=== PATIENT | female | born 1945 | race Caucasian/White ===

== ENCOUNTER → 2020-07-28 | Outpatient (CLI) | payer MEDICARE, OTHER ==
[~2020-07-28] MED LIST: ANORO ELLIPTA1 EACH INH; ATORVASTATIN CA40 MG PO; AUGMENTIN 875-1 EACH PO; BASAGLAR K100 UNIT/1 SQ; BUSPIRONE HCL15 MG PO; CELEXA 20MG TAB20 MG PO; CETIRIZINE HCL10 MG PO; CYANOCOBAL1000 MCG/1 INJ; DEX4 GLUCOSE4 GM PO; DOXYCYCLINE HY100 M2 PO; FERROUS SULFAT325 MG PO; FLAGYL500 MG PO; FLUCONAZOLE50 MG PO; GABAPENTIN800 MG PO; HUMALOG 10100 UNITS/ SC; HUMALOG100 UNIT/3 SQ; IBU800 MG PO; IPRAT-ALBUT 0.5-3 ML NEB; LANTUS SOL100 UNIT/1 SQ; LASIX 40 MG TAB40 MG PO; LEVOFLOXACIN500 MG PO; LISINOPRIL20 MG PO; LISINOPRIL40 MG PO; MEDROL4 MG PO; NIFEDIPINE ER90 M1 PO; PROTONIX 40 MG40 M1 PO; TRAZODONE HCL150 MG PO; VENTOLIN HFA 66.7 GM INH; VENTOLIN/PROVE0.5 ML INH; ZOFRAN ODT 4 MG4 MG PO; ZOFRAN4 MG PO
[2020-07-28 10:39] LABS: HEMOGLOBIN 13.5 gm/dl (12.3-15.3); RED BLOOD COUNT 4.66 M/UL (4.00-5.10); WHITE BLOOD COUNT 12.1 K/UL (4.5-11.0)
[2020-07-28 11:13] LABS: BUN/CREATININE RATIO 28 (0-10)
== END ==
LOC: OPSV2 09:47
PROVIDERS: Surgery
DX: Z01.818 Encounter for other preprocedural examination (principal); R91.8 Other nonspecific abnormal finding of lung field
CPT/HCPCS: 36415; 71046; 80048; 82962; 85025; 85610; 85730; 93005

== ENCOUNTER 2020-08-03 06:24 | Inpatient (IN) | payer MEDICARE, OTHER ==
[~2020-08-03] VITALS: Ht 162.6 cm; Wt 79.4 kg
[~2020-08-03 06:24] MED LIST changes: -DEX4 GLUCOSE4 GM PO; -FLUCONAZOLE50 MG PO; -HUMALOG 10100 UNITS/ SC; -IPRAT-ALBUT 0.5-3 ML NEB; -LEVOFLOXACIN500 MG PO; -MEDROL4 MG PO; -PROTONIX 40 MG40 M1 PO
[2020-08-03 13:25] LABS: RED BLOOD COUNT 4.09 M/UL (4.00-5.10); WHITE BLOOD COUNT 18.6 K/UL (4.5-11.0)
[2020-08-03 13:45] LABS: BUN/CREATININE RATIO 37 (0-10)
--- NOTE | 2020-08-04 01:02 | NUR ---
2100- PT REFUSES TO BE TURNED AT THIS TIME. SHE STATES SHE IS COMFORTABLE. PT IS RESTING IN BED, NO COMPLAINTS AT THIS TIME. 2300- PT IS RESTING IN BED, REFUSES TO BE TURNED AT THIS TIME. EXPLAINED TO PATIENT ABOUT SKIN BREAKDOWN, PRESSURE ULCERS. SHE IS COMFORTABLE WITH NO COMPLAINTS AT THIS TIME.
[2020-08-04 04:59] LABS: HEMOGLOBIN 11.9 gm/dl (12.3-15.3); RED BLOOD COUNT 4.08 M/UL (4.00-5.10); WHITE BLOOD COUNT 16.5 K/UL (4.5-11.0)
[2020-08-04 05:13] LABS: BUN/CREATININE RATIO 35 (0-10)
[2020-08-05 05:29] LABS: HEMOGLOBIN 10.6 gm/dl (12.3-15.3); WHITE BLOOD COUNT 13.6 K/UL (4.5-11.0)
[2020-08-05 05:36] LABS: RED BLOOD COUNT 3.61 M/UL (4.00-5.10)
[2020-08-05 05:53] LABS: BUN/CREATININE RATIO 44 (0-10)
[2020-08-06 05:06] LABS: HEMOGLOBIN 11.4 gm/dl (12.3-15.3); RED BLOOD COUNT 3.94 M/UL (4.00-5.10); WHITE BLOOD COUNT 14.7 K/UL (4.5-11.0)
[2020-08-06 05:44] LABS: BUN/CREATININE RATIO 35 (0-10)
[2020-08-07 05:40] LABS: HEMOGLOBIN 10.7 gm/dl (12.3-15.3); RED BLOOD COUNT 3.64 M/UL (4.00-5.10); WHITE BLOOD COUNT 14.8 K/UL (4.5-11.0)
[2020-08-07 06:15] LABS: BUN/CREATININE RATIO 36 (0-10)
[2020-08-07 11:43] LABS: BUN/CREATININE RATIO 29 (0-10)
[2020-08-08 05:18] LABS: HEMOGLOBIN 10.1 gm/dl (12.3-15.3); RED BLOOD COUNT 3.51 M/UL (4.00-5.10); WHITE BLOOD COUNT 11.2 K/UL (4.5-11.0)
[2020-08-09 05:06] LABS: HEMOGLOBIN 9.8 gm/dl (12.3-15.3); RED BLOOD COUNT 3.4 M/UL (4.00-5.10); WHITE BLOOD COUNT 13.2 K/UL (4.5-11.0)
[2020-08-09 05:22] LABS: BUN/CREATININE RATIO 33 (0-10)
[2020-08-10 04:57] LABS: HEMOGLOBIN 9.6 gm/dl (12.3-15.3); RED BLOOD COUNT 3.31 M/UL (4.00-5.10); WHITE BLOOD COUNT 12.9 K/UL (4.5-11.0)
[2020-08-10 05:20] LABS: BUN/CREATININE RATIO 30 (0-10)
[2020-08-11 04:58] LABS: BUN/CREATININE RATIO 30 (0-10)
[2020-08-11 06:55] LABS: HEMOGLOBIN 9.6 gm/dl (12.3-15.3); RED BLOOD COUNT 3.38 M/UL (4.00-5.10); WHITE BLOOD COUNT 14.2 K/UL (4.5-11.0)
[2020-08-12 07:20] LABS: HEMOGLOBIN 9.4 gm/dl (12.3-15.3); RED BLOOD COUNT 3.26 M/UL (4.00-5.10); WHITE BLOOD COUNT 12.9 K/UL (4.5-11.0)
[2020-08-12 09:11] LABS: BUN/CREATININE RATIO 27 (0-10)
[2020-08-13 05:22] LABS: HEMOGLOBIN 9.6 gm/dl (12.3-15.3); RED BLOOD COUNT 3.46 M/UL (4.00-5.10); WHITE BLOOD COUNT 15.3 K/UL (4.5-11.0)
[2020-08-13 05:36] LABS: BUN/CREATININE RATIO 24 (0-10)
[2020-08-14 05:31] LABS: HEMOGLOBIN 8.4 gm/dl (12.3-15.3); WHITE BLOOD COUNT 12.4 K/UL (4.5-11.0)
[2020-08-14 05:34] LABS: RED BLOOD COUNT 2.91 M/UL (4.00-5.10)
[2020-08-14 05:53] LABS: BUN/CREATININE RATIO 37 (0-10)
[2020-08-14 19:56] LABS: HEMOGLOBIN 8.8 gm/dl (12.3-15.3)
[2020-08-15 05:10] LABS: HEMOGLOBIN 9.1 gm/dl (12.3-15.3); RED BLOOD COUNT 3.15 M/UL (4.00-5.10); WHITE BLOOD COUNT 14.3 K/UL (4.5-11.0)
[2020-08-15 06:10] LABS: BUN/CREATININE RATIO 51 (0-10)
[2020-08-16 04:43] LABS: HEMOGLOBIN 9.5 gm/dl (12.3-15.3); RED BLOOD COUNT 3.34 M/UL (4.00-5.10); WHITE BLOOD COUNT 15.6 K/UL (4.5-11.0)
[2020-08-16 04:54] LABS: BUN/CREATININE RATIO 40 (0-10)
[2020-08-17 03:22] LABS: HEMOGLOBIN 9.3 gm/dl (12.3-15.3); RED BLOOD COUNT 3.22 M/UL (4.00-5.10); WHITE BLOOD COUNT 13.1 K/UL (4.5-11.0)
[2020-08-17 03:37] LABS: BUN/CREATININE RATIO 41 (0-10)
[2020-08-18 03:27] LABS: HEMOGLOBIN 9.2 gm/dl (12.3-15.3); RED BLOOD COUNT 3.26 M/UL (4.00-5.10); WHITE BLOOD COUNT 13.9 K/UL (4.5-11.0)
[2020-08-18 03:46] LABS: BUN/CREATININE RATIO 52 (0-10)
[2020-08-18] MEDS ORDERED: HUMALOG 10100 UNITS/ SC (09:28)
[2020-08-18] MEDS ORDERED: PROTONIX 40 MG40 M1 PO (09:28)
[2020-08-18] MEDS ORDERED: LEVOFLOXACIN500 MG PO (09:28)
[2020-08-18] MEDS ORDERED: FLUCONAZOLE50 MG PO (09:28)
[2020-08-18] MEDS ORDERED: IPRAT-ALBUT 0.5-3 ML NEB (09:28)
[2020-08-18] MEDS ORDERED: DEX4 GLUCOSE4 GM PO (10:10)
[2020-08-18] MEDS ORDERED: MEDROL4 MG PO (10:10)
--- NOTE | 2020-08-18 15:12 | NUR ---
PATIENT WAS GETTING UP TO RESTROOM AND WHEN SHE RETURNED TO BED O2 SAT DROPPED INTO THE 70S. PLACED BACK ON 2LPM PER NC. O2 IMPROVED. WCTM. CALL LIGHT WITHIN REACH.
== END 2020-08-18 17:15 | disposition home or self-care (01) | DRG 163 ==
LOC: OR 06:24 → CCU 11:56 → M/S 08-16 18:05
PROVIDERS: Internal Medicine; Internal Medicine Pulmonary Disease; Physician Assistant; ADMIT Surgery
PROC: 0BBC0ZZ Excision of Right Upper Lung Lobe, Open Approach (ICD-10-PCS; 2020-08-03)
PROC: 07B70ZX Excision of Thorax Lymphatic, Open Approach, Diagnostic (ICD-10-PCS; 2020-08-03)
PROC: 0BJ08ZZ Inspection of Tracheobronchial Tree, Via Natural or Artificial Opening Endoscopic (ICD-10-PCS; 2020-08-03)
PROC: 0B9H8ZX Drainage of Lung Lingula, Via Natural or Artificial Opening Endoscopic, Diagnostic (ICD-10-PCS; 2020-08-13)
PROC: 0B9G8ZX Drainage of Left Upper Lung Lobe, Via Natural or Artificial Opening Endoscopic, Diagnostic (ICD-10-PCS; 2020-08-13)
PROC: 0WCQ8ZZ Extirpation of Matter from Respiratory Tract, Via Natural or Artificial Opening Endoscopic (ICD-10-PCS; principal; 2020-08-13 07:40)
PROC: B24BZZZ Ultrasonography of Heart with Aorta (ICD-10-PCS; 2020-08-16)
DX: C34.11 Malignant neoplasm of upper lobe, right bronchus or lung (principal); J80 Acute respiratory distress syndrome; J15.9 Unspecified bacterial pneumonia; B48.8 Other specified mycoses; I50.32 Chronic diastolic (congestive) heart failure; J44.0 Chronic obstructive pulmonary disease with (acute) lower respiratory infection; J44.1 Chronic obstructive pulmonary disease with (acute) exacerbation; E78.5 Hyperlipidemia, unspecified; F41.9 Anxiety disorder, unspecified; F32.9 Major depressive disorder, single episode, unspecified; M19.90 Unspecified osteoarthritis, unspecified site; E11.40 Type 2 diabetes mellitus with diabetic neuropathy, unspecified; E11.65 Type 2 diabetes mellitus with hyperglycemia; G47.00 Insomnia, unspecified; I11.0 Hypertensive heart disease with heart failure; Z20.822 Contact with and (suspected) exposure to COVID-19; E88.09 Other disorders of plasma-protein metabolism, not elsewhere classified; D50.9 Iron deficiency anemia, unspecified; F17.210 Nicotine dependence, cigarettes, uncomplicated; Z79.4 Long term (current) use of insulin; Z79.899 Other long term (current) drug therapy
CPT/HCPCS: ECHO; 31500; 36415; 36600; 71045; 71250; 80048; 80053; 80202; 82330; 82803; 82962; 83605; 83735; 83880; 84100; 84132; 85014; 85018; 85025; 85027; 86140; 86850; 86900; 86901; 87040; 87070; 87081; 87086; 87205; 87206; 93306; 94002; 94003; 94640; 94660; 94664; 94760; 97110; 97110-GP-CQ; 97116-GP-CQ; 97163; 97166; 97530-GP-CQ; 97535; C9113; J0690; J1100; J1170; J1205; J1335; J1450; J1650; J1940; J2250; J2270; J2543; J2704; J2710; J2920; J2930; J3010; J3370; J3420; J7030; J7040; J7050; J7070; J7120; U0002

== ENCOUNTER → 2021-02-09 | Outpatient (CLI) | payer OTHER ==
[~2021-02-09] MED LIST changes: +DEX4 GLUCOSE4 GM PO; +FLUCONAZOLE50 MG PO; +HUMALOG 10100 UNITS/ SC; +IPRAT-ALBUT 0.5-3 ML NEB; +LEVOFLOXACIN500 MG PO; +MEDROL4 MG PO; +PROTONIX 40 MG40 M1 PO
== END ==
LOC: HEART 5 12:23
DX: R06.02 Shortness of breath (principal); R94.2 Abnormal results of pulmonary function studies
CPT/HCPCS: 94060; 94729; 95012

== ENCOUNTER → 2021-10-07 | Outpatient (CLI) | payer MEDICARE, OTHER | LOC: HEART 5 10:23 | DX: J45.50 Severe persistent asthma, uncomplicated (principal); R94.2 Abnormal results of pulmonary function studies | CPT/HCPCS: 94060; 94729; 95012 ==